=== PATIENT | female | born 1980 | race Caucasian/White ===

== ENCOUNTER → 2021-10-05 | Emergency (ER) | payer SELFPAY ==
[~2021-10-05] VITALS: Ht 160 cm; Wt 102.3 kg
[2021-10-05 14:57] VITALS: BP 125/73
[2021-10-05 17:06] LABS: COLOR,URINE YELLOW (Yellow); UA COLLECTION TYPE CLN CATCH MIDSTREAM
[2021-10-05 17:07] LABS: CLARITY,URINE TURBID (Clear); GLUCOSE, URINE NEGATIVE (Neg); KETONES,URINE NEGATIVE (Neg); LEUKOCYTE ESTERASE ,URINE MODERATE (Neg); NITRITES, URINE NEGATIVE (Neg); OCCULT BLOOD,URINE LARGE (Neg); PROTEIN,URINE 100 mg/dl (Neg); UROBILINOGEN,URINE 0.2 E.U/dL (0.2-1.0)
[2021-10-05 17:24] LABS: BACTERIA,URINE 4+ /HPF (Neg); MUCUS STRANDS MODERATE /LPF (Neg); RBC,URINE 50-100 /HPF (0-2); SQUAMOUS EPITHELIAL CELL,UR MODERATE /LPF (FEW); WBC,URINE TNTC /HPF (0-4)
[2021-10-05 17:25] LABS: AMORPHOUS URATES 2+
== END | disposition left against medical advice (07) ==
LOC: ER 14:28
DX: N39.0 Urinary tract infection, site not specified (principal); Z53.21 Procedure and treatment not carried out due to patient leaving prior to being seen by health care provider
CPT/HCPCS: 81001; 87088

== ENCOUNTER 2024-07-20 12:27 | Emergency (ER) | payer MEDICAID ==
[~2024-07-20] VITALS: Ht 160 cm; Wt 123.0 kg
[2024-07-20 14:40] VITALS: BP 130/79; PULSE 66; RESP 16; TEMP 97.9; O2SAT 100
== END 2024-07-20 14:42 | disposition home or self-care (01) ==
LOC: ER 12:28
DX: S80.11XA Contusion of right lower leg, initial encounter (principal); M23.91 Unspecified internal derangement of right knee; Z88.5 Allergy status to narcotic agent; W19.XXXA Unspecified fall, initial encounter; Y93.89 Activity, other specified; Y92.89 Other specified places as the place of occurrence of the external cause; Y99.8 Other external cause status
CPT/HCPCS: 73564; 99284

== ENCOUNTER 2025-04-18 16:23 | Emergency (ER) | payer MEDICAID ==
[~2025-04-18] VITALS: Ht 162.6 cm; Wt 112.5 kg
--- NOTE | 2025-04-18 19:08 | RADIOLOGY REPORT ---
Exam: DI ABDOMEN,SINGLE VIEW(KUB) Indication: constipation Comparison: None Technique: AP supine radiographs of the abdomen. Findings: Bowel gas pattern is unremarkable with no abnormally dilated loops of large or small bowel. No abnorm al calcific density noted. Osseous structures appear unremarkable. Impression: Unremarkable study.
--- NOTE | 2025-04-18 19:38 | Physician Documentation ---
History of Present Illness General Chief Complaint: Constipation Stated Complaint: CONSTIPATED Time Seen by MD: 18:59 Primary Medical Doctor: DR. HARO History of Present Illness Initial Comments Poor BM's x 1 month. OTC meds not effective. PCP concerned leaking fluids may indicate obstruction. No opiate therapy. Neg results for screening of colon CA. No vomiting. Medication Reconciliation Allergies: Coded Allergies: morphine (Verified Allergy, Unknown, 07/20/24) Review of Systems All Other Systems at this time: Reviewed and Negative Constitutional: Denies: fever, chills RESP: Denies: short of breath CV: Denies: chest pain GI: Reports: abdominal pain, constipation Physical Exam Physical Exam Vital Signs: RN Vital Signs have been reviewed: Yes, Temperature: 97.9, Source: Temporal, Heart Rate: 85, Respiratory Rate: 18, Pulse Oximetry: 99, Weight: 112.550 Oxygen Flow Rate: 0 General Appearance: alert, WD/WN, mild distress Head: normal inspection Face: normal inspection Pupils/EOM/Fundus: PERRLA Respiratory: no respiratory distress Cardiovascular: regular rate, rhythm Gastrointestinal: bowels sounds present, other (No peritoneal signs); No: liver enlargement, spleen enlargement, pulsatile mass Extremities: normal range of motion Neurologic: oriented x4 Motor / Sensory: no motor deficit, no sensory deficit Psychiatric: normal mood/affect Skin: normal color Progress Results/Orders Results/Orders Vital Signs 04/18/25 04/18/25 04/18/25 16:33 18:03 19:44 Temp 97.9 97.9 Pulse 85 74 Resp 18 18 16 B/P (MAP) 156/91 Pulse Ox 99 98 O2 Flow Rate 0 Medical Decision Making Differential Diagnosis Examination imaging consistent with constipation without clinical evidence of obstipation and/or obstruction. Patient advised to continue with polyethylene glycol and consider Mag citrate and/or glycerin suppositories. She will keep follow up appointment with the primary care physician. Departure Disposition: HOME / SELF CARE / HOMELESS Impression: Primary Impression: Constipation Qualified Codes: K59.00 - Constipation, unspecified Condition: Stable Discharge Instructions: Constipation, Adult Additional Instructions: Tonight in the emergency department we discussed the different modalities for open resolve constipation. Please purchase Mag citrate and consider glycerin suppositories. Continue with your polyethylene glycol. Keep follow up appointment with the primary care physician and return to the emergency department as needed. Your x-rays are reassuring for no bowel obstruction. Referrals: NO PRIMARY CARE PROVIDER (PCP) Education Educated: Patient Educated regarding: diagnosis, treatment Signature Scribe Signature: . Attestation: . SARITA PATEL [facility] Apr 18, 2025 19:38
[2025-04-18 19:44] VITALS: BP 156/91; PULSE 74; RESP 16; TEMP 97.9; O2SAT 98
== END 2025-04-18 19:45 | disposition home or self-care (01) ==
LOC: ER 16:23
DX: K59.00 Constipation, unspecified (principal); Z88.5 Allergy status to narcotic agent
CPT/HCPCS: 74018; 99283

== ENCOUNTER 2025-06-30 15:52 | Emergency (ER) | payer MEDICAID ==
[~2025-06-30] VITALS: Ht 160 cm; Wt 111.5 kg
--- NOTE | 2025-06-30 16:26 | Physician Documentation ---
History of Present Illness ~ Chief Complaint: Leg Pain Stated Complaint: L LEG NUMBNESS Time Seen by MD: 16:46 Primary Medical Doctor: DR. HARO [facility] Patient is a very pleasant 45-year-old female that presents to the emergency department for evaluation of left upper leg pain times several weeks. Reports that the pain is in her medial lateral thigh and worsens with exercise usually around mid day. Patient reports that she had an episode of this in the right leg several years ago that resolved on its own. Reports that she has recently been seen at the clinic they sent her home with information for exercises and to follow up with physical therapy. She reports that she was unable to complete some of that physical therapy due to having bad knees. Tetanus witin 5 years: Yes Medication Reconciliation Allergies: Coded Allergies: morphine (Verified Allergy, Unknown, 06/30/25) Review of Systems ROS As stated above in the HPI, otherwise all systems are reviewed and negative. Physical Exam Vital Signs: Temperature: 98.4, Source: Temporal, Heart Rate: 84, Respiratory Rate: 16, BP: 122/80, Pulse Oximetry: 98, Weight: 111.500 Oxygen Flow Rate: 0 Physical Exam VITALS: Reviewed and as above. GENERAL: Alert, no apparent distress. HEENT: Normocephalic, atraumatic, PERRL, EOMI, dry mucosa, no erythema RESPIRATORY: Lungs clear, normal breath sounds, no respiratory distress. CHEST: No accessory muscle use, no retractions CV: Regular rate, rhythm, no edema, no murmur, No: JVD GI: Soft, non-tender, bowels sounds present, no rebound, guarding, or rigidity BACK: No CVA tenderness, or swelling MUSCULOSKELETAL No deformities, no edema, pain with palpation to the left medial lateral thigh, no hip or knee pain on the affected side, no back pain SKIN: Warm and dry, no rash NEURO: Oriented x4, No motor or sensory deficit PSYCH: Normal mood and affect, no agitation Progress Results/Orders Results/Orders Vital Signs 06/30/25 16:17 Temp 98.4 Pulse 84 Resp 16 B/P (MAP) 122/80 Pulse Ox 98 O2 Flow Rate 0 Medical Decision Making Findings Patient presents with left lateral thigh pain. Patient reports that the pain is most consistent with muscular pain. Given history, exam and workup patient likely has a muscle strain. I have low suspicion for fracture, dislocation, significant ligamentous injury, septic arthritis, gout flare, new autoimmune arthropathy, or gonococcal arthropathy. Patient will follow up with her primary care provider. Patient will return to the emergency department if she has any worsening or recurrent symptoms or any additional concerning symptoms that we discussed here today. General Diff Dx:Considerations: Include: Abrasion, Contusion, Fracture, Hematoma, Laceration, Malunion, Neurovascular injury, Open fracture, Sprain, Ulcer, Other Departure Disposition: HOME / SELF CARE / HOMELESS Impression: Primary Impression: Lower extremity sprain Additional Impression: Muscle strain Discharge Instructions: Muscle Strain, [id number] Additional Instructions: Patient presents with left lateral thigh pain. Patient reports that the pain is most consistent with muscular pain. Given history, exam and workup patient likely has a muscle strain. I have low suspicion for fracture, dislocation, significant ligamentous injury, septic arthritis, gout flare, new autoimmune arthropathy, or gonococcal arthropathy. Patient will follow up with her primary care provider. Patient will return to the emergency department if she has any worsening or recurrent symptoms or any additional concerning symptoms that we discussed here today. Referrals: NO PRIMARY CARE PROVIDER (PCP) Prescriptions Diclofenac Sodium (Voltaren Arthritis Pain) 1 % Gel..gram. 1 APPLIC TOP BID for pain for 10 Days, #30 GM Prov: CATRINA KEARNEY 06/30/25 Lidocaine (Lidocaine Pain Relief) 4 % Adh..patch 1 PATCH TOP DAILY for 10 Days, #10 PATCH 0 Refills Prov: CATRINA KEARNEY 06/30/25 Education Educated: Patient Educated regarding: diagnosis, treatment, need for follow up Signature Scribe Signature: A Attestation: Scribed for Catrina Kearney by JASON Hannah . 06/30/25 17:42 CATRINA KEARNEY Jun 30, 2025 16:26
[2025-06-30] MEDS ORDERED: LIDO1ADH67 TOP (17:42)
[2025-06-30] MEDS ORDERED: DICL20GE TOP (17:42)
[2025-06-30 17:51] VITALS: BP 123/78; PULSE 84; RESP 16; TEMP 98.5; O2SAT 98
== END 2025-06-30 17:53 | disposition home or self-care (01) ==
LOC: ER 15:52
DX: S86.912A Strain of unspecified muscle(s) and tendon(s) at lower leg level, left leg, initial encounter (principal); Z88.5 Allergy status to narcotic agent; X58.XXXA Exposure to other specified factors, initial encounter; Y93.89 Activity, other specified; Y92.89 Other specified places as the place of occurrence of the external cause; Y99.8 Other external cause status
CPT/HCPCS: 99283